=== PATIENT | female | born 1995 | race Caucasian/White ===

== ENCOUNTER 2021-10-31 17:34 | Emergency (ER) | payer OTHER, SELFPAY ==
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
[2021-10-31 17:36] VITALS: BP 147/100; PULSE 105; RESP 16; TEMP 36.4; O2SAT 99
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
[2021-10-31] MEDS: IBUPROFEN SUSPENSION 200 MG/10 ML UDC 600 MG PO (18:19)
== END 2021-10-31 20:26 | disposition home or self-care (01) ==
PROVIDERS: Emergency Provider Emergency Medicine
DX: R51.9 Headache, unspecified (principal); S49.91XA Unspecified injury of right shoulder and upper arm, initial encounter; V43.52XA Car driver injured in collision with other type car in traffic accident, initial encounter
CPT/HCPCS: 73000; 99283; A9270

== ENCOUNTER 2021-11-06 22:54 | Emergency (ER) | payer OTHER, BC, SELFPAY ==
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
[2021-11-06 22:59] VITALS: BP 134/106; PULSE 92; RESP 16; TEMP 36.4; O2SAT 95
--- NOTE | 2021-11-06 23:14 | PC.NURSE ---
Kurt, CUT OFF MACHINE UNLOADER to triage room for pt eval while awaiting bed availability. ROM tested by CUT OFF MACHINE UNLOADER and pt back to wr, awaiting x-ray.
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
[2021-11-06] MEDS: KETOROLAC (*BKC) 60 MG/2 ML VIAL IM (23:28)
== END 2021-11-07 00:18 | disposition home or self-care (01) ==
LOC: ANHED 23:52
PROVIDERS: Emergency Provider Nurse Practitioner Family
DX: S46.912A Strain of unspecified muscle, fascia and tendon at shoulder and upper arm level, left arm, initial encounter (principal); V49.9XXA Car occupant (driver) (passenger) injured in unspecified traffic accident, initial encounter
CPT/HCPCS: 73030; 96372; 99283; J1885

== ENCOUNTER 2022-04-25 04:18 | Emergency (ER) | payer SELFPAY ==
[2022-04-25 04:19] VITALS: BP 119/81; PULSE 129; RESP 18; TEMP 36.2; O2SAT 97
--- NOTE | 2022-04-25 04:36 | ED.GENADULT ---
HPI - General Adult General Chief complaint: Skin/Abscess/Foreign Body Stated complaint: boil on bottom Time Seen by Provider: 04/25/22 04:20 History of Present Illness HPI narrative: 26-year-old female presented to the emergency department for evaluation of abscess on the patient's left buttock. Patient states that the abscess started on Saturday. Patient reports she has been doing warm soaks and in order to get the abscess to drain but had not been successful. When patient arrived to the emergency department the abscess was already starting to drain. Related Data Allergies Allergy/AdvReac Type Severity Reaction Status Date / Time No Known Allergies Allergy Verified 04/25/22 04:25 Review of Systems Review of Systems: CONSTITUTIONAL: Denies fever, chills, or sweats. EYES: Denies visual changes, redness, or discharge. ENT: Denies rhinorrhea, congestion, sore throat, or otalgia. CARDIOVASCULAR: Denies chest pain, palpitations, or edema. RESPIRATORY: Denies cough or dyspnea. GASTROINTESTINAL: Denies abdominal pain, nausea, vomiting, or diarrhea. GENITOURINARY: Denies dysuria or hematuria. SKIN: Abscess on left buttock MUSCULOSKELETAL: Denies back pain, joint pain, or myalgia. NEUROLOGIC: Denies headache, numbness, or weakness. Exam Narrative: APPEARANCE: Well appearing, no pain, no distress, well-nourished. HEAD: normocephalic, atraumatic. EYES: PERRLA/EOMI, conjunctivae clear. NOSE: Normal no drainage RESPIRATORY: Airway patent, respirations nonlabored. Clear to auscultation bilaterally, no rales, rhonchi, wheezing. CARDIOVASCULAR: Regular rate and rhythm without murmurs rubs or gallops. ABDOMINAL: Soft, nontender, nondistended, normal bowel sounds MUSCULOSKELETAL: Moves all extremities. Strength/ROM intact, No edema, No calf tenderness. NEURO: Alert. Cranial nerves II through XII intact. Grossly intact SKIN: Abscess on left buttock began draining spontaneously and drained a copious amount of purulent discharge PSYCHIATRIC: Normal affect/mood. Course Course Emergency Course: Abscess had a necrotic groove that was removed and there was spontaneous drainage with copious amounts of drainage. Approximately 15 to 20 mL of purulent discharge. Patient was started on Cipro and Flagyl while in the ED. Patient was encouraged to continue her warm water soaks. Patient was encouraged to have close follow-up with her primary care physician to ensure proper healing. All questions and concerns were addressed. Patient was well-appearing at time of discharge. Vital Signs Vital signs: Vital Signs Temperature 97.1 F L 04/25/22 04:19 Pulse Rate 129 H 04/25/22 04:19 Respiratory Rate 18 04/25/22 04:19 Blood Pressure 119/81 04/25/22 04:19 Pulse Oximetry 97 04/25/22 04:19 Oxygen Delivery Room Air 04/25/22 04:19 Temperature 97.1 F L 04/25/22 04:19 Pulse Rate 129 H 04/25/22 04:19 Respiratory Rate 18 04/25/22 04:19 Blood Pressure 119/81 04/25/22 04:19 Pulse Oximetry 97 04/25/22 04:19 Oxygen Delivery Room Air 04/25/22 04:19 Medical Decision Making Vital Signs Vital Signs: Vital Signs Temperature 97.1 F L 04/25/22 04:19 Pulse Rate 129 H 04/25/22 04:19 Respiratory Rate 18 04/25/22 04:19 Blood Pressure 119/81 04/25/22 04:19 Pulse Oximetry 97 04/25/22 04:19 Oxygen Delivery Room Air 04/25/22 04:19 Temperature 97.1 F L 04/25/22 04:19 Pulse Rate 129 H 04/25/22 04:19 Respiratory Rate 18 04/25/22 04:19 Blood Pressure 119/81 04/25/22 04:19 Pulse Oximetry 97 04/25/22 04:19 Oxygen Delivery Room Air 04/25/22 04:19 Discharge Plan Discharge Clinical Impression: Abscess of skin or subcutaneous tissue Patient Disposition: Home, Self-Care Condition: Stable Instructions: Antibiotic Form, Abscess (ED) Additional Instructions: Antibiotic as directed until completed. Warm water soaks for the next 1 to 2 days to help further drain the abscess. Have close fol
[2022-04-25] MEDS: CIPROFLOXACIN 500 MG TAB PO (04:56)
[2022-04-25] MEDS: metroNIDAZOLE 250 MG TABLET 500 MG PO (04:57)
--- NOTE | 2022-04-25 05:14 | PC.NURSE ---
Medication given and pt stated she can swallow pills. I can just crunch then up. Pt warning of taste, and education on etoh ingestion with flagyl. PT crushed medication with teeth and shortly after had nausea and vomiting. Dr. Rodriguez made aware. Pt stating she would continue taking other medication.
== END 2022-04-25 05:40 | disposition home or self-care (01) ==
PROVIDERS: Emergency Provider Emergency Medicine; PCP Internal Medicine
DX: L02.31 Cutaneous abscess of buttock (principal)
CPT/HCPCS: 10060; 99283; A9270

== ENCOUNTER 2022-07-29 17:08 | Emergency (ER) | payer SELFPAY ==
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
[2022-07-29 17:33] VITALS: BP 120/79; PULSE 66; RESP 18; TEMP 36.4; O2SAT 100
== END 2022-07-29 18:32 | disposition home or self-care (01) ==
PROVIDERS: Emergency Provider Nurse Practitioner Family; PCP Internal Medicine
DX: G89.29 Other chronic pain (principal); M25.512 Pain in left shoulder; E28.2 Polycystic ovarian syndrome
CPT/HCPCS: 73030; 99213; G0463